=== PATIENT | male | born 1950 | race African-American/Black ===

== ENCOUNTER 2019-06-28 16:30 | Emergency (ER) | payer OTHER ==
[2019-06-28 17:08] LABS: #Eosinphils 0.1 thou/uL (0.0-0.7); #Lymphocytes 1.5 thou/uL (1.20-3.40); #Monocytes 0.7 thou/uL (0.11-0.59); #Neutrophils 4.6 thou/uL (1.40-6.50); %Basophils 0.6 % (0.0-1.0); %Eosinophils 0.9 % (0.0-10.0); %Lymphocytes 21.3 % (21.0-51.0); %Monocytes 9.9 % (0.0-10.0); %Neutrophils 67.3 % (42.0-75.0); Hemoglobin 14.5 g/dL (14.0-18.0); Mean Corpuscular HGB CONC 33.1 g/dL (32.0-36.0); Mean Corpuscular Hemoglobin 33.4 pg (27.0-31.0); Platelet Count 124 thou/uL (130-400); RBC Distribution Width 13.8 % (11.5-14.5); Red Blood Cell (RBC) Count 4.33 mill/uL (4.70-6.10); White Blood Cell (WBC) Count 6.8 thou/uL (4.8-10.8)
[2019-06-28 17:11] LABS: PTT 32.9 SEC (22.9-36.1); Prothrombin Time 12.8 SEC (12.0-14.7)
[2019-06-28 17:29] LABS: ALT (SGPT) 57 U/L (8-55); AST (SGOT) 97 U/L (5-34); Alkaline Phosphatase 125 U/L (40-150); Anion Gap 14 mmol/L (10-20); BUN (Urea Nitrogen) 40 mg/dL (8.4-25.7); Bilirubin, Total 0.8 mg/dL (0.2-1.2); Calc. Creatinine Clearance 0 mL/min (70-130); Calcium 8.4 mg/dL (7.8-10.44); Carbon Dioxide 29 mmol/L (23-31); Chloride 94 mmol/L (98-107); Estimated GFR-MDRD 3; Globulin 4.8 g/dL (2.4-3.5); Glucose 80 mg/dL (80-115); Potassium 3.4 mmol/L (3.5-5.1); Protein, Total 7.8 g/dL (5.8-8.1); Sodium 134 mmol/L (136-145)
== END 2019-06-28 19:10 | disposition home or self-care (01) ==
LOC: ERS 16:30
DX: K64.4 Residual hemorrhoidal skin tags (principal); I12.0 Hypertensive chronic kidney disease with stage 5 chronic kidney disease or end stage renal disease; F17.290 Nicotine dependence, other tobacco product, uncomplicated; Z99.2 Dependence on renal dialysis
CPT/HCPCS: 36415; 80053; 82274; 85025; 85610; 85730; 99283